=== PATIENT | female | born 1950 | race Caucasian/White ===

== ENCOUNTER 2016-07-22 16:37 | Observation (INO) | payer MEDICARE, BC ==
[~2016-07-22] VITALS: Ht 149.9 cm; Wt 81.4 kg
[2016-07-22] VITALS (10 sets, daily range): BP systolic 126–160; BP diastolic 57–86; PULSE 80–90; RESP 16–20; TEMP 98.1–99.2; O2SAT 96–99
[2016-07-22] MEDS ORDERED: SODIUM CHLORIDE 0.9% FLUSH 5 ML FLUSH IVF PRN ×2 (17:00→18:45)
[2016-07-22] MEDS ORDERED: ASPIRIN 81 MG CHEW TAB PO ONE (17:00)
--- NOTE | 2016-07-22 17:00 | PD ---
HPI Chief Complaint: Chest Pain Time Seen by Provider: 16:56 Travel History International Travel<30 days: No Contact w/Intl Traveler<30days: No History of Present Illness HPI 66-year-old female presents to the emergency department for evaluation of intermittent midsternal, left upper back pain, left shoulder pain for 3 weeks. Patient states she has been under a lot more stress recently due to moving and her going out of town soon. She denies any shortness of breath. No hemoptysis. No recent surgeries or travel the past month. No leg edema. Patient reports history of a heart murmur when she was a child, but denies any current cardiac history. She reports a history of hypothyroidism and takes levothyroxine, but no other medical problems. She has never had a stress test or cardiac catheterization. Patient states the pain occurs when she feels very stressed out. Otherwise, the pain does resolve. She reports the pain is "tightness". She denies any alcohol, tobacco, drug use. No cough or congestion. She denies any other complaints. [facility] Social History Alcohol Use: No Tobacco Use: No Substance Use: No Allergies-Medications (Allergen,Severity, Reaction): Coded Allergies: Lidocaine (Verified Allergy, Severe, 07/22/16) Reported Meds & Prescriptions Reported Meds & Active Scripts Active Reported Levothyroxine (Levothyroxine Sodium) 50 Mcg Tab 50 Mcg PO HS Review of Systems Except as stated in HPI: all other systems reviewed are Neg Physical Exam Narrative GENERAL: Well-developed well-nourished female patient, afebrile. SKIN: Warm and dry. HEAD: Normocephalic. Atraumatic. EYES: No scleral icterus. No injection or drainage. NECK: Supple, trachea midline. No JVD or lymphadenopathy. CARDIOVASCULAR: Regular rate and rhythm without murmurs, gallops, or rubs. RESPIRATORY: Breath sounds equal bilaterally. No accessory muscle use. Lungs sounds clear to auscultation. GASTROINTESTINAL: Abdomen soft, non-tender, nondistended. MUSCULOSKELETAL: No cyanosis, or edema. No reproducible midsternal chest pain. BACK: Nontender without obvious deformity. No CVA tenderness. Data Data Last Documented VS Vital Signs Date Time Temp Pulse Resp B/P Pulse Ox O2 Delivery O2 Flow Rate FiO2 07/22/16 17:51 84 16 160/78 96 Room Air 07/22/16 16:51 99.2 Orders Electrocardiogram (07/22/16 16:55) Basic Metabolic Panel (Bmp) (07/22/16 16:55) Ckmb (Isoenzyme) Profile (07/22/16 16:55) Complete Blood Count With Diff (07/22/16 16:55) Magnesium (Mg) (07/22/16 16:55) Troponin I (07/22/16 16:55) Chest, Single Ap (07/22/16 16:55) Ecg Monitoring (07/22/16 16:55) Bilateral Bp Monitoring (07/22/16 16:55) Iv Access Insert/Monitor (07/22/16 16:55) Oximetry (07/22/16 16:55) Oxygen Administration (07/22/16 16:55) Aspirin Chew (Aspirin Chew) (07/22/16 17:00) Sodium Chloride 0.9% Flush (Ns Flush) (07/22/16 17:00) CKMB (07/22/16 17:10) CKMB% (07/22/16 17:10) Admit Order (Ed Use Only) (07/22/16 18:44) Activity Bed Rest With Brp (07/22/16 18:44) Vital Signs (Adult) Q4H (07/22/16 18:44) Cardiac Rhythm .As Directed (07/22/16 18:44) ^ Notify Dr: Other .PRN (07/22/16 18:44) ^ Notify Dr. Parameters (07/22/16 18:44) Resp Oxygen Nasal Cannula (07/22/16 ) Diet Heart Healthy (07/22/16 Dinner) Ckmb (Isoenzyme) Profile (07/22/16 20:10) Ckmb (Isoenzyme) Profile (07/22/16 23:10) Troponin I (07/22/16 20:10) Troponin I (07/22/16 23:10) Electrocardiogram (07/22/16 20:10) Electrocardiogram (07/22/16 23:10) ^ Obtain (07/22/16 18:44) Sodium Chloride 0.9% Flush (Ns Flush) (07/22/16 18:45) Sodium Chloride 0.9% Flush (Ns Flush) (07/22/16 21:00) Scoop Filler / Telemetry PREET.Q8H (07/22/16 18:44) Labs Laboratory Tests Test 07/22/16 17:10 White Blood Count 7.3 TH/MM3 Red Blood Count 4.54 MIL/MM3 Hemoglobin 13.7 GM/DL Hematocrit 39.8 % Mean Corpuscular Volume 87.6 FL Mean Corpuscular Hemoglobin 30.1 PG Mean Corpuscular Hemoglobin 34.3 % Concent Red Cell Distribution Width 11.9 % Platelet Count 230 TH/MM3 Mean Platelet Volume 7.9 FL Neutrophils (%) (Auto) 68.2 % Lymphocytes (%) (Auto) 24.1 % Monocytes (%) (Auto) 6.0 % Eosinophils (%) (Auto) 0.7 % Basophils (%) (Auto) 1.0 % Neutrophils # (Auto) 4.9 TH/MM3 Lymphocytes # (Auto) 1.8 TH/MM3 Monocytes # (Auto) 0.4 TH/MM3 Eosinophils # (Auto) 0.1 TH/MM3 Basophils # (Auto) 0.1 TH/MM3 CBC Comment DIFF FINAL Differential Comment Sodium Level 144 MEQ/L Potassium Level 3.8 MEQ/L Chloride Level 109 MEQ/L Carbon Dioxide Level 24.2 MEQ/L Anion Gap 11 MEQ/L Blood Urea Nitrogen 16 MG/DL Creatinine 0.82 MG/DL Estimat Glomerular Filtration 69 ML/MIN Rate Random Glucose 93 MG/DL Calcium Level 9.0 MG/DL Magnesium Level 2.5 MG/DL Total Creatine Kinase 116 U/L Creatine Kinase MB 1.1 NG/ML Troponin I 0.05 NG/ML MDM Medical Decision Making Medical Screen Exam Complete: Yes Emergency Medical Condition: Yes Medical Record Reviewed: Yes Interpretation(s) Chest x-ray - CONCLUSION: 1. Low lung volumes with mild basilar density most characteristic of atelectasis. Differential Diagnosis ACS versus chest wall pain versus anxiety pneumonia versus pneumothorax versus cardiac arrhythmia versus electrolyte abnormality Narrative Course 66-year-old female presents to the emergency department for evaluation of midsternal chest pain, left upper back pain, left shoulder pain that has been intermittent over 3 weeks, worse with stressful situations. CBC, BMP, CK, troponin, magnesium, chest x-ray ordered and pending. EKG shows sinus rhythm, no ST elevation noted, heart rate 88. CBC is unremarkable. BMP shows no acute abnormality. CK is 116. Troponin is 0.05. Magnesium is 2.5. Chest x-ray shows low lung volumes with mild basilar density most characteristic of atelectasis. I discussed admission of the chest pain center with the patient who agrees. [facility] is paged for admission. Dr. Royal accepted admission. Diagnosis Primary Impression: Chest pain Qualified Code: R07.9 - Chest pain, unspecified type Admitting Information Admitting Physician Requests: Observation Kristen Agrawal Jul 22, 2016 17:00
[2016-07-22] MEDS ORDERED: LEVO50TA4 PO (17:13)
[2016-07-22 17:18] LABS: AUTOMATED NEUTROPHIL # 4.9 TH/MM3 (1.8-7.7); BASOPHIL # 0.1 TH/MM3 (0-0.2); EOSINOPHIL # 0.1 TH/MM3 (0-0.4); EOSINOPHIL % 0.7 % (0.0-4.0); HEMATOCRIT 39.8 % (35.0-46.0); HEMO FLAGS DIFF FINAL; LYMPH % 24.1 % (9.0-44.0); LYMPHOCYTE # 1.8 TH/MM3 (1.0-4.8); MEAN CELL VOLUME 87.6 FL (80.0-100.0); MEAN CORPUSCULAR HEMOGLOBIN 30.1 PG (27.0-34.0); MEAN CORPUSCULAR HGB CONC 34.3 % (32.0-36.0); NEUT % 68.2 % (16.0-70.0); PLATELET COUNT 230 TH/MM3 (150-450); RED BLOOD COUNT 4.54 MIL/MM3 (4.00-5.30); RED CELL DISTRIBUTION WIDTH 11.9 % (11.6-17.2); WHITE BLOOD COUNT 7.3 TH/MM3 (4.0-11.0)
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
[2016-07-22 17:26] LABS: CHLORIDE 109 MEQ/L (98-107); POTASSIUM 3.8 MEQ/L (3.5-5.1); SODIUM (NA) 144 MEQ/L (136-145)
[2016-07-22 17:29] LABS: ANION GAP 11 MEQ/L (5-15); BICARBONATE 24.2 MEQ/L (21.0-32.0); BLOOD UREA NITROGEN 16 MG/DL (7-18); MAGNESIUM 2.5 MG/DL (1.5-2.5)
[2016-07-22 17:33] LABS: GLOMERULAR FILTRATION RATE 69 ML/MIN (>89)
[2016-07-22 17:36] LABS: CREATINE KINASE 116 U/L (26-192)
[2016-07-22 17:48] LABS: CKMB 1.1 NG/ML (0.5-3.6)
--- NOTE | 2016-07-22 18:24 | RADHPO ---
EXAM DATE/TIME: 07/22/2016 17:19 [facility] COMPARISON: No previous studies available for comparison. INDICATIONS : Chest pain. MEDICAL HISTORY : None. SURGICAL HISTORY : None. ENCOUNTER: Initial ACUITY: 1 day PAIN SCORE: 6/10 LOCATION: Bilateral chest FINDINGS: Exam is characterized by low lung volumes with basilar atelectasis. Heart size upper limits of normal . No effusion or pneumothorax. CONCLUSION: 1. Low lung volumes with mild basilar density most characteristic of atelectasis. Saman Chopra MD on July 22, 2016 at 18:22 Board Certified Radiologist. This report was verified electronically.
[2016-07-22 21:15] LABS: CREATINE KINASE 109 U/L (26-192)
[2016-07-22 21:28] LABS: CKMB 1.2 NG/ML (0.5-3.6)
[2016-07-22] MEDS: SODIUM CHLORIDE 0.9% FLUSH 5 ML FLUSH IVF SCH (21:51)
[2016-07-23] VITALS: BP 146/72; PULSE 83; RESP 20; TEMP 98.3; O2SAT 97
[2016-07-23] MEDS ORDERED: ENOXAPARIN SODIUM 80 MG/0.8 ML SYRINGE SQ SCH (01:30)
[2016-07-23 04:00] VITALS: BP 150/71; PULSE 87; RESP 20; TEMP 97.9; O2SAT 96
[2016-07-23 07:09] LABS: AUTOMATED NEUTROPHIL # 3.5 TH/MM3 (1.8-7.7); BASOPHIL % 0.5 % (0.0-2.0); EOSINOPHIL # 0.1 TH/MM3 (0-0.4); EOSINOPHIL % 1.5 % (0.0-4.0); HEMATOCRIT 38.6 % (35.0-46.0); HEMO FLAGS DIFF FINAL; LYMPH % 44.2 % (9.0-44.0); LYMPHOCYTE # 3.1 TH/MM3 (1.0-4.8); MEAN CELL VOLUME 87.9 FL (80.0-100.0); MEAN CORPUSCULAR HEMOGLOBIN 29.8 PG (27.0-34.0); MEAN CORPUSCULAR HGB CONC 33.9 % (32.0-36.0); MONO % 5.8 % (0.0-8.0); PLATELET COUNT 224 TH/MM3 (150-450); WHITE BLOOD COUNT 7.1 TH/MM3 (4.0-11.0)
[2016-07-23 07:16] LABS: POTASSIUM 3.9 MEQ/L (3.5-5.1)
[2016-07-23 07:19] LABS: BICARBONATE 23.1 MEQ/L (21.0-32.0)
[2016-07-23 07:20] LABS: APTT (PATIENT) 29.7 SEC (24.3-30.1); PROTHROMBIN TIME - PATIENT 10.7 SEC (9.8-11.6)
--- NOTE | 2016-07-23 07:37 | HHI.HP ---
[facility] Physician Lemuel Gore MD Admission Diagnosis Chest Pain Diagnoses: (1) Chest pain Diagnosis: Principal (2) Elevated troponin Diagnosis: Principal (3) Hypothyroidism Diagnosis: Secondary (4) Anxiety Chief Complaint: Chest pain Travel History International Travel<30 Days: No Contact w/Intl Traveler <30 Da: No Traveled to Known Affected Are: No History of Present Illness 66-year-old female with known history of anxiety, gastroesophageal reflux, hypothyroidism who presented to hospital at the request of urgent care physician. Patient states that she has been under a lot of stress lately with selling and buying a condo. She had a discussion with her yesterday and decided to take a drive to calm down. However, during the drive she developed shortness of breath, lightheadedness, dizziness. Patient drove herself to urgent care center and they did workup and had EKG performed, the patient states that the doctor there notified her that she did not have a heart attack but there is an abnormality on her EKG and she should go to the ER for evaluation. Patient came to emergency department had workup done. The patient indicates that she has had some chest discomfort intermittently over the last 3 weeks. She states that when she gets under a lot of stress she develops a achy type sensation in left anterior chest radiating around her left side and into her back. She denied any nausea, vomiting, diaphoresis, shortness of breath, dyspnea during this discomfort. She states whenever she calms down the discomfort goes away after 1-2 minutes. Patient with minimal risk factors to include age. Patient states that she does have a lot of anxiety. She quit taking antidepressants almost 2 years ago because she was diagnosed with fatty liver. It was recommended by the ER physician that the patient be observed and chest pain center for further evaluation management. Review of Systems Constitutional: COMPLAINS OF: Dizziness, DENIES: Diaphoretic episodes, Fatigue , Fever, Weight gain, Weight loss, Chills, Change in appetite, Night Sweats Eyes: DENIES: Blurred vision, Diplopia, Eye inflammation, Eye pain, Vision loss , Double Vision Ears, nose, mouth, throat: DENIES: Vertigo, Nasal discharge, Throat pain, Ear Pain, Running Nose, Sinus Pain Respiratory: COMPLAINS OF: Shortness of breath, DENIES: Apneas, Cough, Snoring , Wheezing, Hemoptysis, Sputum production Cardiovascular: COMPLAINS OF: Chest pain, DENIES: Palpitations, Syncope, Dyspnea on Exertion, Lower Extremity Edema, Orthopnea Gastrointestinal: DENIES: Abdominal pain, Black stools, Bloody stools, Constipation, Diarrhea, Nausea, Vomiting, Difficulty Swallowing, Anorexia Neurologic: DENIES: Abnormal gait, Headache, Localized weakness, Paresthesias, Seizures, Speech Problems, Tremor, Poor Balance Psychiatric: COMPLAINS OF: Anxiety Past Family Social History Past Medical History Hypothyroidism History kidney stones Anxiety Gastroesophageal reflux Fatty liver Past Surgical History Hysterectomy Reported Medications Reported Meds & Active Scripts Active Reported Levothyroxine (Levothyroxine Sodium) 50 Mcg Tab 50 Mcg PO HS Allergies: Coded Allergies: Lidocaine (Verified Allergy, Severe, 07/22/16) Family History Reviewed is significant for father having an arrhythmia problems where he was on blood thinners and subsequently from bleeding Social History Patient smoked for probably 5 years from 16 years old at 21 years old. She does not drink any alcohol or use any illicit drugs Physical Exam Vital Signs Vital Signs Date Time Temp Pulse Resp B/P Pulse Ox O2 Delivery O2 Flow Rate FiO2 07/23/16 04:00 97.9 87 20 150/71 96 07/23/16 00:00 98.3 83 20 146/72 97 07/22/16 22:58 98 21 07/22/16 22:15 90 07/22/16 21:10 98.1 81 20 137/71 96 07/22/16 21:07 18 97 07/22/16 21:03 82 18 144/59 99 Room Air 07/22/16 21:03 82 18 99 Room Air 07/22/16 19:05 90 18 99 Room Air 07/22/16 19:05 90 18 142/61 99 Room Air 07/22/16 18:46 80 16 126/57 98 Room Air 07/22/16 17:51 84 16 160/78 96 Room Air 07/22/16 17:50 81 150/86 160/78 07/22/16 17:29 98 Room Air 07/22/16 17:29 16 98 Room Air 07/22/16 16:51 99.2 86 18 160/66 98 Physical Exam GENERAL: Well-developed, well-nourished, in no acute distress. alert and orientated HEENT: Head is normocephalic without any lesions or masses noted. Facial features are symmetric. Eyes: Pupils equal round reactive to light. Extraocular muscles are intact. Conjunctivae were clear. Oropharyngeal: Pharynx without any erythema edema. Tongue is midline without deviation. Buccal mucosa is moist without any masses or lesions NECK: Supple without any masses. Trachea midline no deviation. No JVD, no bruits are appreciated CARDIAC: Regular rhythm, regular rate. S1/S2 are heard. No murmurs gallops or rubs. LUNGS: Clear to auscultation bilaterally. No wheeze, rhonchi or rales. No use of accessory muscles on inspiration or expiration. ABDOMEN: Soft, nontender. Nondistended. Bowel sounds heard in all 4 quadrants. No organomegaly or masses. Negative rebound, negative guarding EXTREMITIES: No edema, pulses are equal bilaterally. No cyanosis or clubbing NEUROLOGY: Mood and affect appear appropriate. Cranial nerves II through XII grossly intact. Muscle strength 5/5 in upper and lower extremities bilaterally. Deep tendon reflexes are 2+ in upper and lower extremities bilaterally. Laboratory Laboratory Tests Test 07/22/16 07/22/16 07/22/16 07/23/16 17:10 20:50 22:50 06:57 White Blood Count 7.3 7.1 Red Blood Count 4.54 4.40 Hemoglobin 13.7 13.1 Hematocrit 39.8 38.6 Mean Corpuscular Volume 87.6 87.9 Mean Corpuscular Hemoglobin 30.1 29.8 Mean Corpuscular Hemoglobin 34.3 33.9 Concent Red Cell Distribution Width 11.9 12.0 Platelet Count 230 224 Mean Platelet Volume 7.9 7.8 Neutrophils (%) (Auto) 68.2 48.0 Lymphocytes (%) (Auto) 24.1 44.2 Monocytes (%) (Auto) 6.0 5.8 Eosinophils (%) (Auto) 0.7 1.5 Basophils (%) (Auto) 1.0 0.5 Neutrophils # (Auto) 4.9 3.5 Lymphocytes # (Auto) 1.8 3.1 Monocytes # (Auto) 0.4 0.4 Eosinophils # (Auto) 0.1 0.1 Basophils # (Auto) 0.1 0.0 CBC Comment DIFF FINAL DIFF FINAL Differential Comment Sodium Level 144 143 Potassium Level 3.8 3.9 Chloride Level 109 109 Carbon Dioxide Level 24.2 23.1 Anion Gap 11 11 Blood Urea Nitrogen 16 18 Creatinine 0.82 0.77 Estimat Glomerular Filtration 69 75 Rate Random Glucose 93 107 Calcium Level 9.0 8.5 Magnesium Level 2.5 Total Creatine Kinase 116 109 101 Creatine Kinase MB 1.1 1.2 Troponin I 0.05 0.09 0.12 Prothrombin Time 10.7 Prothromb Time International 1.0 Ratio Activated Partial 29.7 Thromboplast Time Result Diagram: 07/23/16 0657 07/23/16 0657 Imaging Last Impressions Chest X-Ray 07/22/16 1655 Signed Impressions: Service Date/Time: Friday, July 22, 2016 17:19 - CONCLUSION: 1. Low lung volumes with mild basilar density most characteristic of atelectasis. Saman Chopra MD Assessment and Plan Assessment and Plan Chest pain with elevated troponin: Patient with increased risk factors to include age. Patient was initially admitted to the chest pain center for evaluation. However, during serial cardiac enzymes she did develop elevation in troponin which are equivocal and have plateaued at this time. Serial EKGs which were reviewed by myself indicating no acute changes. Does have T-wave inversion in lead II. Patient was given aspirin emergency department. Patient was started on therapeutic Lovenox. Cardiology consultation has been performed and recommended nuclear stress test. Nuclear stress test was performed and was negative. Hypothyroidism: Resume replacement therapy DVT prevention: Low risk, early ambulation Written by Blas Chadwick PA-C, acting as scribe for Dr. Royal on 07/23/16 at 1145. The documentation accurately reflects the work and decisions performed face-to- face by Dr. Royal on 07/23/16 at 1145. Discharge disposition Discharge home in stable condition Activity: Ad maribell. Diet: Healthy heart diet Medications per medication reconciliation Follow-up with primary medical doctor in one week Problem Qualifiers (1) Chest pain: Qualified Code: R07.9 - Chest pain, unspecified type Blas Chadwick Jul 23, 2016 07:37
[2016-07-23] MEDS ORDERED: NITROGLYCERIN 0.4 MG SL 25 TABS/BTL SL PRN (07:45)
[2016-07-23 08:00] VITALS: BP 143/87; PULSE 77; RESP 18; TEMP 98.2; O2SAT 95
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
[2016-07-23] MEDS ORDERED: METOPROLOL SUCCINATE 25 MG EXTENDED RELEASE TAB PO SCH (09:00)
[2016-07-23] MEDS: SODIUM CHLORIDE 0.9% FLUSH 5 ML FLUSH IVF SCH (09:21)
[2016-07-23] MEDS ORDERED: REGADENOSON INJ 0.4 MG/5 ML SYR IV ONE (10:56)
--- NOTE | 2016-07-23 11:37 | RADHPO ---
EXAM DATE/TIME: 07/23/2016 10:33 [facility] COMPARISON: No previous studies available for comparison. INDICATIONS : Mid chest pain intermittent for three weeks. Angina. DOSE: 25.5 mCi Tc99m Myoview at stress. 8.7 mCi Tc99m Myoview at rest. 0.4 mg Lexiscan STRESS SYMPTOMS: Shortness of breath with a headache. EJECTION FRACTION: > 70% MEDICAL HISTORY : Hypothyroidism. Gastroesophageal reflux disease. SURGICAL HISTORY : Hysterectomy. ENCOUNTER: Initial ACUITY: 3 weeks PAIN SCALE: 6/10 LOCATION: Midsternal chest TECHNIQUE: The patient underwent pharmacologic stress with infusion of prescribed dose. Continuous ECG tracing was monitored during stress. Gated SPECT imaging was performed after stress and conventional SPECT i maging was performed at rest. The examination was performed on a SPECT/CT scanner, both attenuation and non-corrected datasets were reviewed. FINDINGS: DISTRIBUTION: The maximum perfused segment at stress is in the anterolateral wall. PERFUSION STUDY: The pattern of perfusion at stress is within normal limits. GATED STUDY: There is intact wall motion and thickening without hypokinetic or dyskinetic segments. CONCLUSION: No reversible defects identified to suggest acute ischemia. RISK CATEGORY: Low Bryan Villatoro Jr., MD on July 23, 2016 at 11:32 Board Certified Radiologist. This report was verified electronically.
--- NOTE | 2016-07-23 11:41 | HHI.DCPOC ---
Discharge Care Plan Diagnosis: (1) Chest pain (2) Elevated troponin Goals to Promote Your Health * To prevent worsening of your condition and complications * To maintain your health at the optimal level Directions to Meet Your Goals Take your medications as prescribed Follow your dietary instruction Follow activity as directed Keep your appointments as scheduled Take your immunizations and boosters as scheduled If your symptoms worsen call your PCP, if no PCP go to Urgent Care Center or Emergency Room Smoking is Dangerous to Your Health. Avoid second hand smoke Call the 24-hour hour crisis hotline for domestic abuse at Blas Chadwick Jul 23, 2016 11:41
[2016-07-23 12:00] VITALS: BP 138/72; PULSE 73; PULSE 80; RESP 18; TEMP 98.6; O2SAT 96
--- NOTE | 2016-07-23 14:24 | EKG ---
Date Performed: 07/22/2016 Time Performed: 22:42:48 PTAGE: 66 years EKG: Sinus rhythm . Inferior T wave changes are nonspecific Borderline ECG PREVIOUS TRACING : 07/22/2016 20.09 DOCTOR: Jerrod Cosme Interpretating Date/Time 07/23/2016 14:19:28
--- NOTE | 2016-07-23 14:26 | EKG ---
Date Performed: 07/22/2016 Time Performed: 20:09:54 PTAGE: 66 years EKG: Sinus rhythm ST junctional depression is nonspecific Borderline ECG PREVIOUS TRACING : 07/22/2016 16.49 DOCTOR: Jerrod Cosme Interpretating Date/Time 07/23/2016 14:22:45
--- NOTE | 2016-07-23 14:31 | EKG ---
Date Performed: 07/22/2016 Time Performed: 16:49:22 PTAGE: 66 years EKG: Sinus rhythm ST junctional depression is nonspecific Borderline ECG NO PREVIOUS TRACING DOCTOR: Jerrod Cosme Interpretating Date/Time 07/23/2016 14:27:55
[2016-07-23] MEDS ORDERED: LEVOTHYROXINE SODIUM 50 MCG TAB PO SCH (21:00)
[2016-07-24] MEDS ORDERED: ISOSORBIDE MONONITRATE 30 MG TAB PO SCH (07:00)
== END 2016-07-23 12:23 | disposition home or self-care (01) ==
LOC: PHED 16:37 → PHEDA 18:45 → PH3B 21:10
PROVIDERS: ADMIT Family Medicine; ATTEND Family Medicine
DX: R07.9 Chest pain, unspecified (principal); R74.8 Abnormal levels of other serum enzymes; R94.31 Abnormal electrocardiogram [ECG] [EKG]; I10 Essential (primary) hypertension; E03.9 Hypothyroidism, unspecified; F41.9 Anxiety disorder, unspecified; K21.9 Gastro-esophageal reflux disease without esophagitis; K76.0 Fatty (change of) liver, not elsewhere classified; Z87.442 Personal history of urinary calculi; Z87.891 Personal history of nicotine dependence
CPT/HCPCS: 71010; 78452; 80048; 82550; 82552; 83735; 84484; 85025; 85610; 85730; 93005; 93017; 99285; A9502; G0378; J1650; J2785